=== PATIENT | female | born 1975 | race Caucasian/White ===

== ENCOUNTER 2021-04-24 00:13 | Observation (INO) | payer OTHER ==
[~2021-04-24] VITALS: Ht 154.9 cm; Wt 70.8 kg
[2021-04-24 03:47] LABS: CLARITY URINE CLOUDY (CLEAR); COLOR URINE YELLOW (YELLOW); KETONES URINE NEGATIVE (NEGATIVE); LEUKOCYTE ESTERASE URINE 3+ (NEGATIVE); NITRITE URINE POSITIVE (NEGATIVE); OCCULT BLOOD URINE 3+ (NEGATIVE); PROTEIN URINE TRACE (NEGATIVE); SPECIFIC GRAVITY URINE 1.018 (1.005-1.030)
[2021-04-24 04:15] LABS: *BENZODIAZEPINES SCREEN URINE NEGATIVE (NEGATIVE); *COCAINE SCREEN URINE NEGATIVE (NEGATIVE); METHADONE URINE SCREEN NEGATIVE (NEGATIVE); OPIATES URINE SCREEN NEGATIVE (NEGATIVE); PHENCYCLIDINE URINE SCREEN NEGATIVE (NEGATIVE)
[2021-04-24 04:16] LABS: CANNABINOID URINE SCREEN NEGATIVE (NEGATIVE)
[2021-04-24 04:44] LABS: *AMPHETAMINES SCREEN URINE PRESUMTIVE POSITIVE (NEGATIVE)
[2021-04-24] MEDS ORDERED: CEFAZOLIN 2,000 MG in DEXT 5% WATER 100 ML IV ONE (08:00)
[2021-04-24] MEDS ORDERED: PNV1TABL76 MT (09:01)
[2021-04-25 22:03] LABS: *BARBITURATES SCREEN URINE NEGATIVE (NEGATIVE)
== END 2021-04-24 09:15 | disposition home or self-care (01) ==
LOC: 8 EST LDRP 00:13
PROVIDERS: ADMIT Obstetrics & Gynecology; ATTEND Obstetrics & Gynecology
DX: O26.893 Other specified pregnancy related conditions, third trimester (principal); R10.9 Unspecified abdominal pain; Z3A.30 30 weeks gestation of pregnancy; Z79.899 Other long term (current) drug therapy
CPT/HCPCS: 59025; 76805; 76818; 80305; 80359; 81003; 87086; 96365; G0378; J0690; J7060; 96366; 99281; G0379

== ENCOUNTER 2021-05-08 20:10 | Inpatient (IN) | payer OTHER ==
[~2021-05-08] VITALS: Ht 154.9 cm; Wt 68.0 kg
[~2021-05-08 20:10] MED LIST: PNV1TABL76 MT
[2021-05-08] MEDS ORDERED: LIDOCAINE HCL 1% 20ML VIAL (Pyxis) INJ INFIL SCH (21:30)
[2021-05-08] MEDS ORDERED: DEXT 5%/LR + PITOCIN 20UNITS/L 1,000 ML IV SCH (21:30)
[2021-05-08] MEDS ORDERED: RHO(D) IMMUNE GLOBULIN 300 MCG/SYR IM ONE (21:30)
[2021-05-08] MEDS ORDERED: LIDOCAINE HCL 1% 10 MG/ML 10ML VIAL IJ SCH (21:45)
[2021-05-08] MEDS: LACTATED RINGERS 1,000 ML IV SCH ×2 (21:47→23:24)
[2021-05-08 21:59] LABS: BASOPHILS % 0.5 % (0.0-2.0); HEMATOCRIT. 23.6 % (36.0-48.0); HEMOGLOBIN. 7.6 g/dL (12.0-16.0); LYMPHOCYTES % 16.3 % (20.0-50.0); MEAN CORPUSCULAR HEMOGLOBIN 21.4 pg (28.0-32.0); MEAN CORPUSCULAR VOLUME 67.1 fL (81.0-99.0); MEAN PLATELET VOLUME 9.2 fl (7.4-10.4); MONOCYTES % 8.1 % (2.0-8.0); NEUTROPHILS % 74.1 % (40.0-76.0); PLATELET 161 x1000/uL (130-400); RED BLOOD CELL COUNT 3.53 mill/uL (4.2-5.4); RED CELL DISTRIBUTION WIDTH 17.9 % (11.6-14.6)
[2021-05-08] MEDS ORDERED: PENICILLIN G POTASSIUM 5 MMU in DEXT 5% WATER 100 ML IV SCH (22:00)
[2021-05-08 22:13] LABS: INR 0.9; PARTIAL THROMBOPLASTIN TIME 24.4 sec (23.4-31.0); PROTHROMBIN TIME 9.8 sec (9.6-11.0)
[2021-05-08 22:17] LABS: PLATELET ESTIMATE NORMAL
[2021-05-08 22:51] LABS: HEPATITIS B SURFACE ANTIGEN NEGATIVE
[2021-05-08] MEDS ORDERED: ROPIVACAINE HCL/PF EPIDURAL 200 ML EPI SCH (23:15)
[2021-05-08] MEDS ORDERED: ROPIVACAINE HCL/PF 100ML 100 ML ONE (23:20)
[2021-05-09 00:21] LABS: CLARITY URINE CLOUDY (CLEAR); COLOR URINE DARK YELLOW (YELLOW); KETONES URINE TRACE (NEGATIVE); LEUKOCYTE ESTERASE URINE 2+ (NEGATIVE); NITRITE URINE NEGATIVE (NEGATIVE); OCCULT BLOOD URINE 3+ (NEGATIVE); PROTEIN URINE 1+ (NEGATIVE); SPECIFIC GRAVITY URINE 1.033 (1.005-1.030)
[2021-05-09 00:54] LABS: CANNABINOID URINE SCREEN NEGATIVE (NEGATIVE); METHADONE URINE SCREEN NEGATIVE (NEGATIVE); OPIATES URINE SCREEN NEGATIVE (NEGATIVE); PHENCYCLIDINE URINE SCREEN NEGATIVE (NEGATIVE)
[2021-05-09] MEDS ORDERED: PENICILLIN G POTASSIUM 2.5 MMU in DEXTROSE 5% WATER 50 ML IV SCH (02:00)
[2021-05-09 02:22] LABS: *AMPHETAMINES SCREEN URINE PRESUMTIVE POSITIVE (NEGATIVE); *BARBITURATES SCREEN URINE NEGATIVE (NEGATIVE)
[2021-05-09 02:23] LABS: *BENZODIAZEPINES SCREEN URINE NEGATIVE (NEGATIVE); *COCAINE SCREEN URINE NEGATIVE (NEGATIVE)
[2021-05-09] MEDS ORDERED: HEMORRHOIDAL SUPP PR PRN (02:45)
[2021-05-09] MEDS ORDERED: BENZOCAINE/LANOLIN/ALOE VERA SPRAY TOP PRN (02:45)
[2021-05-09] MEDS ORDERED: LANOLIN OINT 7GM TUBE TOP PRN (02:45)
[2021-05-09] MEDS ORDERED: GLYCERIN/WITCH HAZEL LEAF MEDICATED PAD TOP PRN (02:45)
[2021-05-09] MEDS ORDERED: DIPHENHYDRAMINE 25MG CAPSULE PO PRN (02:45)
[2021-05-09] MEDS ORDERED: IBUPROFEN 400MG TABLET PO PRN (02:45)
[2021-05-09] MEDS ORDERED: ACETAMINOPHEN WITH CODEINE 300/30MG TABLET PO PRN (02:45)
[2021-05-09] MEDS ORDERED: DEXT 5%/LR + PITOCIN 20UNITS/L 1,000 ML IV SCH (02:45)
[2021-05-09] MEDS ORDERED: BISACODYL 10MG SUPP PR PRN (02:45)
[2021-05-09] MEDS ORDERED: RHO(D) IMMUNE GLOBULIN 300 MCG/SYR IM PRN (02:45)
[2021-05-09] MEDS ORDERED: METHYLERGONOVINE MALEATE 0.2 MG/ML IM PRN (02:45)
[2021-05-09] MEDS: IBUPROFEN 800MG TABLET PO PRN ×2 (04:13→17:55)
[2021-05-09 05:30] VITALS: BP 138/91
[2021-05-09] MEDS ORDERED: INFLUENZA VACCINE 05/PF 0.5 ML SYRINGE IM ONE (06:00)
[2021-05-09] MEDS ORDERED: TETANUS, DIPHTHERIA, PERTUSSIS VAC/PF 0.5ML (>10YR OLD) IM ONE (06:00)
[2021-05-09 07:30] VITALS: BP 129/81
[2021-05-09] MEDS: PRENATAL VIT/FE FUMARATE/FA TABLET PO SCH (08:24)
[2021-05-09] MEDS: MAGNESIUM/ALUMINUM HYDROXIDE/SIMETHICONE 30ML UDC PO SCH ×4 (08:24→22:23)
[2021-05-09] MEDS: SIMETHICONE 80MG TABLET CHEW PO SCH ×4 (08:24→22:23)
[2021-05-09 08:35] LABS: BASOPHILS % 0.3 % (0.0-2.0); EOSINOPHILS % 0.4 % (0.0-5.0); LYMPHOCYTES % 10.5 % (20.0-50.0); MEAN CORPUSCULAR HEMOGLOBIN 21.3 pg (28.0-32.0); MEAN CORPUSCULAR VOLUME 66.8 fL (81.0-99.0); MEAN PLATELET VOLUME 9.5 fl (7.4-10.4); NEUTROPHILS % 79.8 % (40.0-76.0); PLATELET 143 x1000/uL (130-400); RED CELL DISTRIBUTION WIDTH 18.2 % (11.6-14.6)
[2021-05-09 08:39] LABS: D-DIMER 11.87 mg/L FEU (<0.50); INR 0.9; PARTIAL THROMBOPLASTIN TIME 27.9 sec (23.4-31.0)
[2021-05-09 08:46] LABS: HEMOGLOBIN. 6.4 g/dL (12.0-16.0)
[2021-05-09 08:47] LABS: HEMATOCRIT. 20.1 % (36.0-48.0)
[2021-05-09 09:03] LABS: CHLORIDE 110 mEq/L (98-107)
[2021-05-09 16:00] VITALS: BP 124/74
[2021-05-09 22:00] VITALS: BP 116/71
[2021-05-09] MEDS: DOCUSATE SODIUM 100MG CAPSULE PO SCH (22:24)
[2021-05-10 05:34] VITALS: BP 120/74
[2021-05-10] MEDS ORDERED: RHO(D) IMMUNE GLOBULIN 300 MCG/SYR IM ONE (07:00)
[2021-05-10 07:30] VITALS: BP 120/74
[2021-05-10 08:00] VITALS: BP 110/76
[2021-05-10 16:00] VITALS: BP 115/85
[2021-05-10] MEDS: MAGNESIUM/ALUMINUM HYDROXIDE/SIMETHICONE 30ML UDC PO SCH ×2 (18:05→20:53)
[2021-05-10] MEDS: SIMETHICONE 80MG TABLET CHEW PO SCH ×2 (18:05→20:53)
[2021-05-10] MEDS: FERROUS SULFATE 325MG TABLET PO SCH (18:05)
[2021-05-10] MEDS: IBUPROFEN 800MG TABLET PO PRN (18:18)
[2021-05-10 19:30] VITALS: BP 113/74
[2021-05-10] MEDS: DOCUSATE SODIUM 100MG CAPSULE PO SCH (20:53)
[2021-05-11 04:00] VITALS: BP 115/73
[2021-05-11] MEDS ORDERED: IBUP-2028 PO (07:01)
[2021-05-11 08:00] VITALS: BP 120/72
[2021-05-11] MEDS: MAGNESIUM/ALUMINUM HYDROXIDE/SIMETHICONE 30ML UDC PO SCH (08:20)
[2021-05-11] MEDS: FERROUS SULFATE 325MG TABLET PO SCH (08:20)
[2021-05-11] MEDS: PRENATAL VIT/FE FUMARATE/FA TABLET PO SCH (08:20)
[2021-05-11] MEDS: SIMETHICONE 80MG TABLET CHEW PO SCH (08:21)
[2021-05-11 08:25] VITALS: BP 115/73
[2021-05-11] MEDS: IBUPROFEN 800MG TABLET PO PRN (08:25)
== END 2021-05-11 13:40 | disposition home or self-care (01) | DRG 560 ==
LOC: OBSVTOIN 20:10 → 8 EST LDRP 20:10 → 8EST 05-09 05:00
PROVIDERS: ADMIT Obstetrics & Gynecology; ATTEND Obstetrics & Gynecology
PROC: 10D07Z6 Extraction of Products of Conception, Vacuum, Via Natural or Artificial Opening (ICD-10-PCS; principal; 2021-05-09)
PROC: 0KQM0ZZ Repair Perineum Muscle, Open Approach (ICD-10-PCS; 2021-05-09)
PROC: 3E0R3BZ Introduction of Anesthetic Agent into Spinal Canal, Percutaneous Approach (ICD-10-PCS; 2021-05-09)
PROC: 00HU33Z Insertion of Infusion Device into Spinal Canal, Percutaneous Approach (ICD-10-PCS; 2021-05-09)
DX: O42.913 Preterm premature rupture of membranes, unspecified as to length of time between rupture and onset of labor, third trimester (principal); Z37.0 Single live birth; O60.23X0 Term delivery with preterm labor, third trimester, not applicable or unspecified; F16.10 Hallucinogen abuse, uncomplicated; Z3A.38 38 weeks gestation of pregnancy; O99.324 Drug use complicating childbirth; F15.10 Other stimulant abuse, uncomplicated; O69.81X0 Labor and delivery complicated by cord around neck, without compression, not applicable or unspecified; O77.0 Labor and delivery complicated by meconium in amniotic fluid; O70.1 Second degree perineal laceration during delivery; O99.03 Anemia complicating the puerperium
CPT/HCPCS: 36415; 80051; 80053; 80305; 80359; 81003; 84550; 85025; 85379; 85384; 86592; 86703; 86762; 86850; 86886; 86900; 87340; 87426; 90384; 90686; 90715; 99281; G0378; J2540; J2590; J2795; J3490; J7060; A4315; J2791

== ENCOUNTER 2021-10-31 17:05 | Emergency (ER) | payer MEDICAID, OTHER ==
[~2021-10-31] VITALS: Ht 160 cm; Wt 68.0 kg
[~2021-10-31 17:05] MED LIST changes: +IBUP-2028 PO
[2021-10-31 17:08] VITALS: BP 127/94
== END 2021-10-31 19:30 | disposition left against medical advice (07) ==
LOC: ER 17:05
DX: Z53.21 Procedure and treatment not carried out due to patient leaving prior to being seen by health care provider (principal)